=== PATIENT | male | born 1955 | race Caucasian/White ===

== ENCOUNTER 2016-06-14 09:26 | Inpatient (IN) | payer MEDICAID, MEDICARE ==
[2016-06-14] VITALS (42 sets, daily range): BP systolic 81–121; BP diastolic 38–70
[~2016-06-14] VITALS: Ht 172.7 cm; Wt 87.1 kg
[2016-06-14] MEDS ORDERED: DEXTROSE 50% WATER 50ML SYRINGE IV ONE ×2 (09:45→10:00)
[2016-06-14] MEDS ORDERED: SODIUM CHLORIDE 0.9% 1000ML BAG (SEPSIS BOLUS) IV ONE (09:45)
[2016-06-14 10:09] LABS: BG BASE EXCESS -9.9 mmol/L (-2.0-2.0); BG CARBOXYHEMOGLOBIN 0.5 % (0.5-1.5); BG DEOXYHEMOGLOBIN 8.1 % (0.0-5.0); BG HCO3 ACT 15.2 mmol/L (22.0-26.0); BG METHEMOGLOBIN 0.3 % (0.0-1.5); BG OXYGEN SATURATION 91.8 % (92.0-98.5); BG OXYHEMOGLOBIN 91.1 % (94.0-97.0); BG PCO2 30.8 mmHg (35.0-45.0); BG PH 7.311 (7.350-7.450); BG PO2 69.7 mmHg (75.0-100.0); BG SAMPLE SITE RIGHT RADIAL; BG TOTAL HEMOGLOBIN 10.5 g/dL (12.0-18.0); BG VENT MODE ROOM AIR
[2016-06-14 10:22] LABS: INR 1.3; PROTHROMBIN TIME 13.4 sec
[2016-06-14 10:46] LABS: BASOPHILS % 0.9 % (0.0-2.0); EOSINOPHILS % 0.9 % (0.0-5.0); HEMATOCRIT. 34.2 % (42.0-52.0); MEAN CORPUSCULAR HEMOGLOBIN 29.8 pg (28.0-32.0); MEAN CORPUSCULAR HGB CONC 32.3 g/dL (31.0-37.0); MEAN CORPUSCULAR VOLUME 92.1 fL (80.0-94.0); MONOCYTES % 7.9 % (2.0-8.0); NEUTROPHILS % 71.3 % (40.0-76.0); RED BLOOD CELL COUNT 3.71 mill/uL (4.7-6.1); WHITE BLOOD COUNT 14.9 x1000/uL (4.5-11.0)
[2016-06-14 11:00] LABS: ALANINE AMINOTRANSFERASE 28 IU/L (13-61); ALBUMIN 1.1 g/dL (3.4-5.0); ANION GAP 20; CALCIUM 6.9 mg/dL (8.5-10.1); CARBON DIOXIDE 17 mEq/L (21-32); CHLORIDE 93 mEq/L (98-107); ETHANOL BLOOD < 10 mg/dL; INDEX HEMOLYSI 2 (1-3); INDEX ICTERIC 3 (1-4); INDEX LIPEMIC 1 (1-3); LIPASE 193 IU/L (73-393); NT PRO B-TYPE NATRIURETIC PEP 3326 pg/mL (5-125); TROPONIN I 0.24 ng/mL (0.00-0.04); UREA NITROGEN BLOOD 52 mg/dL (7-21); eGFR 9 mL/min (>60)
[2016-06-14] MEDS ORDERED: ONDANSETRON HCL 4MG/2ML VIAL IV ONE (11:00)
[2016-06-14 11:01] LABS: DIFFERENTIAL COMMENT 1
[2016-06-14 11:03] LABS: LACTIC ACID 2.7 mmol/L (0.4-2.0)
[2016-06-14] MEDS ORDERED: VANCOMYCIN 1 G PREMIX 200 ML IV SCH (11:15)
[2016-06-14] MEDS ORDERED: PIPERACILLIN/TAZ 3.375G PREMIX 50 ML IV ONE (11:15)
[2016-06-14] MEDS ORDERED: NOREPINEPHRINE 4 MG in DEXT 5% WATER 246 ML IV ONE ×2 (11:30→11:45)
[2016-06-14 11:32] LABS: MEAN PLATELET VOLUME 11.1 fl (7.4-10.4); PLATELET 64 x1000/uL (130-400)
[2016-06-14] MEDS ORDERED: LIDOCAINE HCL 1% 20ML VIAL (Pyxis) INJ ONE (14:37)
[2016-06-14] MEDS ORDERED: DEXT 5%/0.9% NACL 1,000 ML IV SCH (14:46)
[2016-06-14] MEDS: NOREPINEPHRINE 4 MG in DEXT 5% WATER 246 ML IV PRN ×2 (15:03→17:16)
[2016-06-14] MEDS ORDERED: PHENYLEPHRINE 20 MG in DEXT 5% WATER 248 ML IV PRN (15:30)
[2016-06-14] MEDS ORDERED: METO50TA5 PO (16:05)
[2016-06-14] MEDS ORDERED: OMEP20CA10 PO (16:05)
[2016-06-14] MEDS ORDERED: LISI10TA5 PO (16:05)
[2016-06-14] MEDS ORDERED: OCD PO (16:05)
[2016-06-14] MEDS ORDERED: ACET-2178 PO (16:05)
[2016-06-14] MEDS ORDERED: SPIR25TA4 PO (16:05)
[2016-06-14] MEDS ORDERED: CLON0.1T PO (16:05)
[2016-06-14] MEDS ORDERED: DIPH25CA83 PO (16:05)
[2016-06-14] MEDS ORDERED: TRAM50TA3 PO (16:05)
[2016-06-14] MEDS ORDERED: LEVO250T2 PO (16:05)
[2016-06-14] MEDS ORDERED: FURO-152 PO (16:05)
[2016-06-14 16:20] LABS: T4 FREE 1.29 ng/dL (0.76-1.46)
[2016-06-14] MEDS ORDERED: ACETAMINOPHEN 650MG/20.3ML UDC GT PRN (17:30)
[2016-06-14] MEDS ORDERED: MAGNESIUM/ALUMINUM HYDROXIDE/SIMETHICONE 30ML UDC PO PRN (17:30)
[2016-06-14] MEDS ORDERED: DIPHENHYDRAMINE 50MG/ML VIAL IV PRN (17:30)
[2016-06-14] MEDS ORDERED: ONDANSETRON HCL 4MG/2ML VIAL IV PRN (17:30)
[2016-06-14] MEDS ORDERED: GUAIFENESIN 200MG/10ML SUGAR FREE UDC PO PRN (17:30)
[2016-06-14] MEDS ORDERED: ACETAMINOPHEN 650MG SUPP PR PRN (17:30)
[2016-06-14] MEDS ORDERED: CLONIDINE 0.1MG TABLET PO PRN (17:30)
[2016-06-14] MEDS ORDERED: NA PHOS,M-B/NA PHOS,DI-BA ENEMA 118ML PR PRN (17:30)
[2016-06-14] MEDS ORDERED: IPRATROPIUM/ALBUTEROL 0.5-3(2.5)MG/3ML NEB INH PRN (17:30)
[2016-06-14] MEDS ORDERED: PHENYLEPHRINE 20 MG in SODIUM CHLORIDE 0.9% 248 ML IV PRN (17:30)
[2016-06-14] MEDS ORDERED: NOREPINEPHRINE 4 MG in SODIUM CHLORIDE 0.9% 246 ML IV PRN (17:30)
[2016-06-14] MEDS ORDERED: DOCUSATE SODIUM 100MG CAPSULE PO PRN (17:30)
[2016-06-14] MEDS: HYDROCODONE/ACETAMINOPHEN 5/325MG TABLET PO PRN ×2 (18:05→22:05)
[2016-06-14] MEDS: PIPERACILLIN/TAZ 2.25G PREMIX 50 ML IV SCH (19:20)
[2016-06-14 20:17] LABS: BASOPHILS % 1.1 % (0.0-2.0); EOSINOPHILS % 0.4 % (0.0-5.0); HEMATOCRIT. 35.9 % (42.0-52.0); HEMOGLOBIN. 11.7 g/dL (14.0-18.0); LYMPHOCYTES % 14.6 % (20.0-50.0); MEAN CORPUSCULAR HEMOGLOBIN 29.3 pg (28.0-32.0); MEAN CORPUSCULAR HGB CONC 32.7 g/dL (31.0-37.0); MEAN CORPUSCULAR VOLUME 89.9 fL (80.0-94.0); MEAN PLATELET VOLUME 10.2 fl (7.4-10.4); MONOCYTES % 9.1 % (2.0-8.0); NEUTROPHILS % 74.8 % (40.0-76.0); PLATELET 104 x1000/uL (130-400); RED BLOOD CELL COUNT 3.99 mill/uL (4.7-6.1); RED CELL DISTRIBUTION WIDTH 18.1 % (11.6-14.6); WHITE BLOOD COUNT 24.1 x1000/uL (4.5-11.0)
[2016-06-14 20:25] LABS: CALCIUM 6.8 mg/dL (8.5-10.1)
[2016-06-14] MEDS: NOREPINEPHRINE IV PRN (20:55)
[2016-06-14] MEDS: SODIUM CHLORIDE 0.9% IV PRN (20:55)
[2016-06-14] MEDS: PHENYLEPHRINE 40 MG in SODIUM CHLORIDE 0.9% 496 ML IV PRN (20:55)
[2016-06-14] MEDS: VASOPRESSIN 10 UNIT in SODIUM CHLORIDE 0.9% 99.5 ML IV PRN (20:56)
[2016-06-14] MEDS ORDERED: NOREPINEPHRINE IV PRN (21:00)
[2016-06-14] MEDS ORDERED: PHENYLEPHRINE 40 MG in SODIUM CHLORIDE 0.9% 496 ML IV PRN (21:00)
[2016-06-14] MEDS ORDERED: SODIUM CHLORIDE 0.9% IV PRN (21:00)
[2016-06-14] MEDS: SODIUM CHLORIDE 0.9% INJ 3ML FLUSH IVF SCH (21:15)
[2016-06-14 23:15] LABS: CREATINE KINASE MB FRACTION 10.3 ng/mL (0.5-3.6)
[2016-06-14] MEDS ORDERED: ALBUMIN HUMAN 25GM/100ML (25%) IV NR (23:15)
[2016-06-14 23:21] LABS: TROPONIN I 0.44 ng/mL (0.00-0.04)
[2016-06-14] MEDS ORDERED: SODIUM BICARBONATE 8.4% 1 MEQ/ML 50ML SYR IV NR (23:30)
[2016-06-14] MEDS ORDERED: MORPHINE SULFATE 2 MG/ML CPJ (NOT FOR IM USE) IV PRN (23:30)
[2016-06-14] MEDS: HYDROMORPHONE HCL/PF 2MG/ML CPJ IM PRN (23:50)
[2016-06-15] VITALS (111 sets, daily range): BP systolic 48–161; BP diastolic 22–113
[2016-06-15] MEDS: PHENYLEPHRINE 40 MG in SODIUM CHLORIDE 0.9% 496 ML IV PRN ×2 (00:43→05:13)
[2016-06-15] MEDS ORDERED: VANCOMYCIN 1 G PREMIX 200 ML IV NR (01:00)
[2016-06-15] MEDS: VASOPRESSIN 10 UNIT in SODIUM CHLORIDE 0.9% 99.5 ML IV PRN ×5 (01:43→19:57)
[2016-06-15] MEDS: NOREPINEPHRINE IV PRN (01:43)
[2016-06-15] MEDS: SODIUM CHLORIDE 0.9% IV PRN (01:43)
[2016-06-15] MEDS: PIPERACILLIN/TAZ 2.25G PREMIX 50 ML IV SCH ×3 (02:48→18:11)
[2016-06-15] MEDS: SODIUM CHLORIDE 0.9% INJ 3ML FLUSH IVF SCH ×3 (05:14→22:00)
[2016-06-15] MEDS: METRONIDAZOLE 500 MG PREMIX 100 ML IV SCH ×3 (05:14→21:56)
[2016-06-15 05:28] LABS: BASOPHILS % 0.7 % (0.0-2.0); EOSINOPHILS % 0.4 % (0.0-5.0); HEMATOCRIT. 35.5 % (42.0-52.0); HEMOGLOBIN. 11.2 g/dL (14.0-18.0); LYMPHOCYTES % 9.2 % (20.0-50.0); MEAN CORPUSCULAR HEMOGLOBIN 29.7 pg (28.0-32.0); MEAN CORPUSCULAR HGB CONC 31.6 g/dL (31.0-37.0); MEAN CORPUSCULAR VOLUME 93.9 fL (80.0-94.0); MEAN PLATELET VOLUME 10.8 fl (7.4-10.4); MONOCYTES % 9.2 % (2.0-8.0); NEUTROPHILS % 80.5 % (40.0-76.0); PLATELET 95 x1000/uL (130-400); RED BLOOD CELL COUNT 3.78 mill/uL (4.7-6.1); RED CELL DISTRIBUTION WIDTH 18.6 % (11.6-14.6); WHITE BLOOD COUNT 25.7 x1000/uL (4.5-11.0)
[2016-06-15 05:33] LABS: INDEX HEMOLYSI 4 (1-3)
[2016-06-15 05:57] LABS: ALANINE AMINOTRANSFERASE 224 IU/L (13-61); ALBUMIN 1.6 g/dL (3.4-5.0); ANION GAP 30; CALCIUM 6.5 mg/dL (8.5-10.1); CHLORIDE 93 mEq/L (98-107); CREATINE KINASE 679 IU/L (39-308); CREATINE KINASE MB FRACTION 12.5 ng/mL (0.5-3.6); HDL CHOLESTEROL 13 mg/dL (40-59); INDEX HEMOLYSI 4 (1-3); INDEX ICTERIC 3 (1-4); INDEX LIPEMIC 1 (1-3); LDL CHOLESTEROL 177 mg/dL (5-100); MAGNESIUM 1.6 mg/dL (1.8-2.4); PHOSPHORUS 6.6 mg/dL (2.5-4.9); TRIGLYCERIDE 135 mg/dL (0-150); UREA NITROGEN BLOOD 51 mg/dL (7-21); eGFR 9 mL/min (>60)
[2016-06-15] MEDS: NOREPINEPHRINE 32 MG in DEXT 5% WATER 468 ML IV PRN (06:12)
[2016-06-15 06:44] LABS: CARBON DIOXIDE 9 mEq/L (21-32); TROPONIN I 0.55 ng/mL (0.00-0.04)
[2016-06-15 07:17] LABS: AMMONIA < 10 uMol/L (<32)
[2016-06-15] MEDS ORDERED: LEVOTHYROXINE SODIUM 50MCG TABLET PO SCH (07:50)
[2016-06-15] MEDS ORDERED: SODIUM BICARBONATE 50 MEQ in DEXTROSE 5% WATER 1,000 ML IV SCH (08:00)
[2016-06-15] MEDS ORDERED: EPINEPHRINE 0.1MG/ML (1:10,000) 10ML SYR ONE (09:00)
[2016-06-15] MEDS ORDERED: SODIUM BICARBONATE 7.5% 0.9 MEQ/ML 50ML SYR IV ONE (09:00)
[2016-06-15] MEDS: PHENYLEPHRINE 40 MG in DEXT 5% WATER 246 ML IV PRN ×3 (09:23→13:46)
[2016-06-15 09:29] LABS: BG BASE EXCESS -24.3 mmol/L (-2.0-2.0); BG CARBOXYHEMOGLOBIN 0.3 % (0.5-1.5); BG DEOXYHEMOGLOBIN 15.5 % (0.0-5.0); BG FRACTION INSPIRED OXYGEN 40; BG HCO3 ACT 6.3 mmol/L (22.0-26.0); BG METHEMOGLOBIN 0.3 % (0.0-1.5); BG OXYGEN SATURATION 84.4 % (92.0-98.5); BG OXYHEMOGLOBIN 83.9 % (94.0-97.0); BG PCO2 28.5 mmHg (35.0-45.0); BG PH 6.964 (7.350-7.450); BG PO2 68.7 mmHg (75.0-100.0); BG SAMPLE SITE RIGHT BRACHIAL; BG TOTAL HEMOGLOBIN 11.4 g/dL (12.0-18.0); BG VENT MODE NASAL CANNULA
[2016-06-15] MEDS ORDERED: SODIUM BICARBONATE 8.4% 1 MEQ/ML 50ML SYR IV ONE ×2 (09:38→11:53)
[2016-06-15] MEDS ORDERED: PROPOFOL 10MG/ML 100ML 100 ML IV PRN (09:45)
[2016-06-15] MEDS ORDERED: SODIUM BICARBONATE 8.4% 1 MEQ/ML 50ML SYR IV SCH (09:45)
[2016-06-15] MEDS ORDERED: PANTOPRAZOLE SODIUM 40 MG/VIAL IV SCH (09:45)
[2016-06-15] MEDS ORDERED: STERILE WATER FOR INJECTION 10ML VIAL ONE (11:00)
[2016-06-15] MEDS ORDERED: VECURONIUM BROMIDE 10 MG/VIAL IV ONE (11:00)
[2016-06-15] MEDS ORDERED: ETOMIDATE 2MG/ML 10ML VIAL IV ONE (11:00)
[2016-06-15] MEDS ORDERED: SODIUM BICARBONATE 8.4% 1 MEQ/ML 50ML SYR IV NR (11:54)
[2016-06-15] MEDS ORDERED: PHENYLEPHRINE 40 MG in DEXT 5% WATER 500 ML IV PRN (12:15)
[2016-06-15] MEDS: IPRATROPIUM/ALBUTEROL 0.5-3(2.5)MG/3ML NEB HHN SCH ×3 (13:27→23:46)
[2016-06-15] MEDS ORDERED: LACTULOSE 20G/30ML UDC PO SCH (13:30)
[2016-06-15] MEDS ORDERED: SODIUM BICARBONATE 100 MEQ in SODIUM CHLORIDE 0.45% 1,000 ML IV SCH ×3 (13:30→18:15)
[2016-06-15] MEDS ORDERED: PHENYLEPHRINE 80 MG in DEXT 5% WATER 492 ML IV PRN (14:00)
[2016-06-15 16:21] LABS: ALANINE AMINOTRANSFERASE 658 IU/L (13-61); ALBUMIN 1.2 g/dL (3.4-5.0); ANION GAP 19; CALCIUM 6.4 mg/dL (8.5-10.1); CARBON DIOXIDE 23 mEq/L (21-32); CHLORIDE 94 mEq/L (98-107); CREATINE KINASE 890 IU/L (39-308); CREATINE KINASE MB FRACTION 15.4 ng/mL (0.5-3.6); INDEX HEMOLYSI 2 (1-3); INDEX ICTERIC 3 (1-4); INDEX LIPEMIC 1 (1-3); UREA NITROGEN BLOOD 25 mg/dL (7-21); eGFR 19 mL/min (>60)
[2016-06-15] MEDS: PHENYLEPHRINE 80 MG in DEXT 5% WATER 492 ML IV PRN (16:45)
[2016-06-15 16:49] LABS: TROPONIN I 0.74 ng/mL (0.00-0.04)
[2016-06-15 17:58] LABS: BG BASE EXCESS -9.6 mmol/L (-2.0-2.0); BG CARBOXYHEMOGLOBIN 0.4 % (0.5-1.5); BG DEOXYHEMOGLOBIN 15.5 % (0.0-5.0); BG FRACTION INSPIRED OXYGEN 100; BG HCO3 ACT 16.1 mmol/L (22.0-26.0); BG METHEMOGLOBIN 0.2 % (0.0-1.5); BG OXYGEN SATURATION 84.4 % (92.0-98.5); BG OXYHEMOGLOBIN 83.9 % (94.0-97.0); BG PCO2 34.8 mmHg (35.0-45.0); BG PH 7.284 (7.350-7.450); BG PO2 53.3 mmHg (75.0-100.0); BG SAMPLE SITE RIGHT BRACHIAL; BG TIDAL VOLUME(mL) 550 mL; BG TOTAL HEMOGLOBIN 11.6 g/dL (12.0-18.0); BG VENT MODE VENT - A/C; BG VENT RATE 16 set
[2016-06-15] MEDS: HYDROMORPHONE HCL/PF 2MG/ML CPJ IM PRN (19:51)
[2016-06-15] MEDS ORDERED: KCL 20MEQ/100ML PREMIX 100 ML IV NR (20:00)
[2016-06-15] MEDS ORDERED: RIFAXIMIN 550 MG TABLET PO SCH (21:00)
[2016-06-16] VITALS (20 sets, daily range): BP systolic 31–131; BP diastolic 15–107
[2016-06-16] MEDS: PHENYLEPHRINE 80 MG in DEXT 5% WATER 492 ML IV PRN (00:16)
[2016-06-16] MEDS: NOREPINEPHRINE 32 MG in DEXT 5% WATER 468 ML IV PRN (00:17)
[2016-06-16] MEDS: VASOPRESSIN 10 UNIT in SODIUM CHLORIDE 0.9% 99.5 ML IV PRN (00:18)
[2016-06-16] MEDS: PIPERACILLIN/TAZ 2.25G PREMIX 50 ML IV SCH (01:57)
[2016-06-16] MEDS: IPRATROPIUM/ALBUTEROL 0.5-3(2.5)MG/3ML NEB HHN SCH ×2 (03:51→03:52)
[2016-06-18 12:13] LABS: BG BASE EXCESS -19.7 mmol/L (-2.0-2.0); BG CARBOXYHEMOGLOBIN 0.2 % (0.5-1.5); BG DEOXYHEMOGLOBIN 2.3 % (0.0-5.0); BG FRACTION INSPIRED OXYGEN 100; BG HCO3 ACT 8.9 mmol/L (22.0-26.0); BG METHEMOGLOBIN 0.2 % (0.0-1.5); BG OXYGEN SATURATION 97.7 % (92.0-98.5); BG OXYHEMOGLOBIN 97.3 % (94.0-97.0); BG PCO2 30.5 mmHg (35.0-45.0); BG PH 7.084 (7.350-7.450); BG PO2 127.8 mmHg (75.0-100.0); BG SAMPLE SITE RIGHT BRACHIAL; BG TIDAL VOLUME(mL) 550 mL; BG TOTAL HEMOGLOBIN 11.5 g/dL (12.0-18.0); BG VENT MODE VENT - A/C; BG VENT RATE 14 set
== END 2016-06-16 04:43 | disposition expired | DRG 720 ==
LOC: ER 10:40 → CVICU 11:47
PROVIDERS: ADMIT Family Medicine; ATTEND Family Medicine
PROC: 02HV33Z Insertion of Infusion Device into Superior Vena Cava, Percutaneous Approach (ICD-10-PCS; 2016-06-14)
PROC: B548ZZA Ultrasonography of Superior Vena Cava, Guidance (ICD-10-PCS; 2016-06-14)
PROC: 5A1D00Z (ICD-10-PCS; principal; 2016-06-15)
PROC: 5A1935Z Respiratory Ventilation, Less than 24 Consecutive Hours (ICD-10-PCS; 2016-06-15)
PROC: 02HV33Z Insertion of Infusion Device into Superior Vena Cava, Percutaneous Approach (ICD-10-PCS; 2016-06-15)
PROC: B548ZZA Ultrasonography of Superior Vena Cava, Guidance (ICD-10-PCS; 2016-06-15)
PROC: 0BH18EZ Insertion of Endotracheal Airway into Trachea, Via Natural or Artificial Opening Endoscopic (ICD-10-PCS; 2016-06-15)
PROC: 5A12012 Performance of Cardiac Output, Single, Manual (ICD-10-PCS; 2016-06-15)
DX: A41.9 Sepsis, unspecified organism (principal); J96.01 Acute respiratory failure with hypoxia; N17.0 Acute kidney failure with tubular necrosis; R65.21 Severe sepsis with septic shock; G93.41 Metabolic encephalopathy; E43 Unspecified severe protein-calorie malnutrition; K76.6 Portal hypertension; I46.9 Cardiac arrest, cause unspecified; I50.23 Acute on chronic systolic (congestive) heart failure; I13.2 Hypertensive heart and chronic kidney disease with heart failure and with stage 5 chronic kidney disease, or end stage renal disease; I31.3 Pericardial effusion (noninflammatory); N18.6 End stage renal disease; E87.2 Acidosis; D69.59 Other secondary thrombocytopenia; K70.31 Alcoholic cirrhosis of liver with ascites; I42.9 Cardiomyopathy, unspecified; E87.1 Hypo-osmolality and hyponatremia; E83.39 Other disorders of phosphorus metabolism; D53.9 Nutritional anemia, unspecified; D63.8 Anemia in other chronic diseases classified elsewhere; D73.1 Hypersplenism; E16.2 Hypoglycemia, unspecified; E78.5 Hyperlipidemia, unspecified; I25.10 Atherosclerotic heart disease of native coronary artery without angina pectoris; I25.2 Old myocardial infarction; I34.0 Nonrheumatic mitral (valve) insufficiency; I48.2 Chronic atrial fibrillation; Z87.01 Personal history of pneumonia (recurrent); M48.00 Spinal stenosis, site unspecified; K29.60 Other gastritis without bleeding; K57.30 Diverticulosis of large intestine without perforation or abscess without bleeding; K70.40 Alcoholic hepatic failure without coma; K80.20 Calculus of gallbladder without cholecystitis without obstruction; Z79.01 Long term (current) use of anticoagulants; Z82.49 Family history of ischemic heart disease and other diseases of the circulatory system; Z86.73 Personal history of transient ischemic attack (TIA), and cerebral infarction without residual deficits; Z95.810 Presence of automatic (implantable) cardiac defibrillator; Z98.61 Coronary angioplasty status; Z88.6 Allergy status to analgesic agent; Z68.29 Body mass index [BMI] 29.0-29.9, adult
CPT/HCPCS: 36415; 36556; 36569; 36600; 51702; 70450; 71010; 74176; 76937; 80048; 80053; 80061; 82140; 82375; 82550; 82553; 82805; 82962; 83036; 83605; 83690; 83735; 83880; 84100; 84439; 84443; 84484; 85025; 85379; 85610; 87040; 87070; 92950; 93005; 93306; 93970; 94002; 94640; 94664; 96374; 96375; 99291; A4216; A6261; C1725; C1752; C9113; G0482; J0171; J1170; J1200; J2370; J2405; J2543; J3370; J3480; J3490; J7030; J7040; J7042; J7050; J7060; J7070; J7620; P9047